=== PATIENT | female | born 1985 | race Caucasian/White ===

== ENCOUNTER 2018-05-09 16:01 | Emergency (ER) | payer OTHER ==
--- NOTE | 2018-05-09 16:51 | ED Physician Documentation ---
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 denies: Focal weakness, Numbness, Headache PD PAST MEDICAL HISTORY - Past Medical History Past Medical History: No Cardiovascular: None Respiratory: None Neuro: None Endocrine/Autoimmune: None GI: None CASH REGISTER SERVICER: None HEENT: None Psych: Anxiety Musculoskeletal: None Derm: None - Past Surgical History Past Surgical History: Yes General: Cholecystectomy, Gastric surgery /CASH REGISTER SERVICER: Tubal ligation HEENT: Tonsil/Adenoidectomy - Allergies Allergies/Adverse Reactions: Allergies Allergy/AdvReac Type Severity Reaction Status Date / Time No Known Drug Allergies Allergy Verified 05/09/18 16:15 - Social History Does the pt smoke?: No Smoking Status: Never smoker Does the pt drink ETOH?: No Does the pt have substance abuse?: No - Immunizations Immunizations are current?: Yes - POLST Patient has POLST: No PD ED PE NORMAL - Vitals Vital signs reviewed: Yes - HEENT HEENT: PERRL, Other (small superfical approx 1 cm lac to top of scalp) - Neck Neck: Supple, no meningeal sign - Cardiac Cardiac: RRR - Neuro Neuro: Alert and oriented X 3, No motor deficit, Normal speech Eye Opening: Spontaneous Motor: Obeys Commands Verbal: Oriented GCS Score: 15 Results - Vitals Vitals: Vital Signs - 24 hr 05/09/18 16:08 Temperature 36.7 C Heart Rate 83 Respiratory 67 H Rate Blood Pressure 124/76 O2 Saturation 99 Oxygen O2 Source Room air PD MEDICAL DECISION MAKING - Sepsis Event Vital Signs: Vital Signs - 24 hr 05/09/18 16:08 Temperature 36.7 C Heart Rate 83 Respiratory 67 H Rate Blood Pressure 124/76 O2 Saturation 99 Oxygen O2 Source Room air Departure - Departure Disposition: 01 Home, Self Care Clinical Impression: Scalp laceration Qualifiers: Encounter type: initial encounter Qualified Code(s): S01.01XA - Laceration without foreign body of scalp, initial encounter Condition: Good Instructions: ED Laceration Scalp Stitch Or Stap, ED Head Injury Closed Comments: Keep wound clean and apply antibiotic ointment twice a day until healed
[2018-05-09 17:12] VITALS: BP 120/78
== END 2018-05-09 17:13 | disposition home or self-care (01) ==
LOC: ED 16:01
DX: S01.01XA Laceration without foreign body of scalp, initial encounter (principal); W22.09XA Striking against other stationary object, initial encounter; Y93.01 Activity, walking, marching and hiking
CPT/HCPCS: 99282; 99283

== ENCOUNTER 2021-01-21 08:00 | Outpatient (CLI) | payer OTHER ==
[2021-01-21 21:14] LABS: CHLAMYDIA TRACHOMATIS DNA NEGATIVE (NEGATIVE); NEISSERIA GONORRHOEAE DNA NEGATIVE (NEGATIVE); TRICHOMONAS VAGINALIS DNA NEGATIVE (NEGATIVE)
== END 2021-01-21 08:01 | disposition home or self-care (01) ==
LOC: LAB.WC 08:00
PROVIDERS: ATTEND Obstetrics & Gynecology
DX: Z11.3 Encounter for screening for infections with a predominantly sexual mode of transmission (principal)
CPT/HCPCS: 87491; 87591; 87661

== ENCOUNTER 2021-03-11 16:50 | Outpatient (CLI) | payer OTHER | END 2021-03-11 16:51 | disposition home or self-care (01) | LOC: COV 16:50 | PROVIDERS: ATTEND Obstetrics & Gynecology | DX: Z01.812 Encounter for preprocedural laboratory examination (principal); N94.6 Dysmenorrhea, unspecified; N92.0 Excessive and frequent menstruation with regular cycle; Z20.822 Contact with and (suspected) exposure to COVID-19 ==

== ENCOUNTER 2021-03-16 07:17 | Day surgery (SDC) | payer OTHER ==
[2021-03-16] MEDS ORDERED: LACTATED RINGERS 1,000 ML IV ONE ×3 (07:35→12:32)
[2021-03-16] MEDS ORDERED: GABAPENTIN 400 MG CAPSULE ONE (07:40)
[2021-03-16] MEDS ORDERED: ACETAMINOPHEN 1,000 MG/100 ML 100 ML IV ONE (07:40)
[2021-03-16] MEDS ORDERED: ceFAZolin 2 GM/50 ML 2 GM/50 ML BAG IV ONE (07:41)
[2021-03-16 07:57] LABS: BASOPHILS # (AUTO) 0.1 10^3/uL (0.0-0.1); EOSINOPHILS # (AUTO) 0.2 10^3/uL (0.0-0.7); EOSINOPHILS % (AUTO) 3.4 %; HGB - HEMOGLOBIN 13.2 g/dL (12.0-16.0); LYMPHOCYTES # (AUTO) 1.9 10^3/uL (1.5-3.5); LYMPHOCYTES % (AUTO) 27.2 %; MEAN CORPUSCULAR HEMOGLOBIN 27.7 pg (27.0-31.0); MEAN CORPUSCULAR HGB CONC 31.4 g/dL (32.0-36.0); MEAN CORPUSCULAR VOLUME 88.2 fL (81.0-99.0); MEAN PLATELET VOLUME 11.2 fL (7.9-10.8); MONOCYTES # (AUTO) 0.5 10^3/uL (0.0-1.0); MONOCYTES % (AUTO) 6.9 %; NEUTROPHILS # (AUTO) 4.2 10^3/uL (1.5-6.6); NEUTROPHILS % (AUTO) 61.2 %; PLT - PLATELET COUNT 368 10^3/uL (130-450); RED BLOOD COUNT 4.76 10^6/uL (4.20-5.40); RED CELL DISTRIBUTION WIDTH 13.2 % (12.0-15.0); WHITE BLOOD COUNT 6.9 x10^3/uL (4.8-10.8)
[2021-03-16 08:00] LABS: HCG UR QUAL NEGATIVE
--- NOTE | 2021-03-16 08:05 | ANESTHESIA ---
Pre-Anesthesia VS, & Labs - Diagnosis dysmenorrhea, menorrhagia - Procedure total laparoscopic hysterectomy Vital Signs: Temp Pulse Resp BP Pulse Ox 37.2 C 78 16 116/68 100 03/16/21 07:48 03/16/21 07:48 03/16/21 07:48 03/16/21 07:48 03/16/21 07:48 Height: 5 ft 7 in Weight (kg): 69 kg Body Mass Index: 23.8 BMI Classification: Healthy weight - NPO >8 hours - Is Patient ?: No - Lab Results Current Lab Results: Laboratory Tests 03/16/21 07:52: WBC 6.9, RBC 4.76, Hgb 13.2, Hct 42.0, MCV 88.2, MCH 27.7, MCHC 31.4 L, RDW 13.2, Plt Count 368, MPV 11.2 H, Neut # (Auto) 4.2, Lymph # (Auto) 1.9, Walker # (Auto) 0.5, Eos # (Auto) 0.2, Baso # (Auto) 0.1, Absolute Nucleated RBC 0.00, Nucleated RBC % 0.0 Fish Bones: 03/16/21 07:52 Home Medications and Allergies Home Medications: Ambulatory Orders Vilazodone HCl [Viibryd] 40 mg PO DAILY 03/11/21 buPROPion HCL [Bupropion HCl] 100 mg PO BID 03/11/21 hydrOXYzine HCL [Hydroxyzine HCl] 25 mg PO DAILY PRN 03/11/21 Vilazodone HCl [Viibryd] 40 mg PO DAILY 03/11/21 buPROPion HCL [Bupropion HCl] 100 mg PO BID 03/11/21 hydrOXYzine HCL [Hydroxyzine HCl] 25 mg PO DAILY PRN 03/11/21 Allergies/Adverse Reactions: Allergies Allergy/AdvReac Type Severity Reaction Status Date / Time No Known Drug Allergies Allergy Verified 05/09/18 16:15 Anes History & Medical History - Anesthetic History Anesthesia Complications: reports: Post-Operative Nausea/Vomiting - Medical History Cardiovascular: reports: None Pulmonary: reports: None Gastrointestinal: reports: GERD Urinary: reports: None Neuro: reports: None Musculoskeletal: reports: None Endocrine/Autoimmune: reports: None Blood Disorders: reports: None Skin: reports: None Smoking Status: Never smoker Psychosocial: reports: Anxiety History of Cancer?: No - Surgical History General: reports: Cholecystectomy Eyes Ears Nose Throat (EENT): reports: Tonsil/Adenoidectomy Gynecologic: reports: section Exam General: Alert Dental: WNL Mallampati classification: I Respiratory: Lungs clear Cardiovascular: Regular rate Plan Anesthesia Type: General Consent for Procedure(s) Verified and Reviewed: Yes Code Status: Attempt Resuscitation ASA classification: 2-Mild systemic disease Is this case an emergency?: No
[2021-03-16] MEDS ORDERED: PHENAZOPYRIDINE 100 MG TABLET PO ONE (08:06)
[2021-03-16] MEDS ORDERED: LIDOCAINE-MPF 2% 5 ML VIAL ONE (08:16)
[2021-03-16] MEDS ORDERED: PROPOFOL 200 MG/20 ML VIAL IVP ONE (08:16)
[2021-03-16] MEDS ORDERED: SCOPOLAMINE PATCH TOP ONE (08:16)
[2021-03-16] MEDS ORDERED: fentaNYL 100 MCG/2 ML VIAL ONE ×2 (08:17→09:08)
[2021-03-16] MEDS ORDERED: MIDAZOLAM 2 MG/2 ML VIAL ONE ×2 (08:17→08:28)
[2021-03-16] MEDS ORDERED: ROCURONIUM 50 MG/5 ML VIAL ONE ×2 (08:17→10:17)
[2021-03-16] MEDS ORDERED: ONDANSETRON 4 MG/2 ML VIAL ONE (08:17)
[2021-03-16] MEDS ORDERED: DEXAMETHASONE 4 MG/ML VIAL ONE (08:17)
[2021-03-16] MEDS ORDERED: BUPIVACAINE 0.5% PF 30 ML VIAL ONE (08:20)
[2021-03-16] MEDS ORDERED: LIDOCAINE 2%-EPI 1:100000 20 ML MDV ONE (08:20)
[2021-03-16] MEDS ORDERED: SEVOFLURANE 250 ML LIQUID INH ONE (08:21)
[2021-03-16] MEDS ORDERED: ePHEDrine 50 MG/ML VIAL IVP PRN (08:24)
[2021-03-16] MEDS ORDERED: fentaNYL 100 MCG/2 ML VIAL IVP PRN (08:24)
[2021-03-16] MEDS ORDERED: ONDANSETRON 4 MG/2 ML VIAL IVP PRN ×2 (08:24→12:00)
[2021-03-16] MEDS ORDERED: HYDROmorphone 0.5 MG/0.5 ML SYRINGE IVP PRN (08:24)
[2021-03-16] MEDS ORDERED: MORPHINE 2 MG/ML CARPUJECT IVP PRN (08:24)
[2021-03-16] MEDS ORDERED: NALOXONE 0.4 MG/ML VIAL IVP PRN (08:24)
[2021-03-16] MEDS ORDERED: ATROPINE ABBOJECT 1 MG/10 ML SYRINGE IVP PRN (08:24)
[2021-03-16] MEDS ORDERED: LACTATED RINGERS 1,000 ML IV SCH (09:00)
[2021-03-16] MEDS ORDERED: LIDOCAINE 2%-EPI 1:100000 20 ML MDV SUBQ ONE ×2 (09:28)
[2021-03-16] MEDS ORDERED: BUPIVACAINE 0.5% PF 30 ML VIAL INFIL ONE ×2 (09:28)
[2021-03-16] MEDS ORDERED: ePHEDrine 50 MG/ML VIAL IVP ONE (11:19)
[2021-03-16] MEDS ORDERED: SUGAMMADEX 200 MG/2 ML VIAL IVP ONE (11:26)
[2021-03-16] MEDS ORDERED: oxyCODONE 5 MG TABLET PO PRN (12:00)
--- NOTE | 2021-03-16 12:05 | OPERATIVE REPORT ---
Operative Report - General Procedure Date: 03/16/21 Planned Procedure: Supracervical hysterectomy cystoscopy Pre-Op Diagnosis: Menorrhagia dysmenorrhea Procedure Performed: Supracervical hysterectomy Cystoscopy Post Op Diagnosis: Menorrhagia dysmenorrhea - Procedure Note Primary Surgeon: Monty Aguirre MD Secondary Surgeon: Krysta Ratliff MD Anesthesia Provider: Wally Noble CRNA Anesthesia Technique: General ET tube Pathology: Uterus without cervix IV Fluids (mL): 1,800 Estimated Blood Loss (mL): 100 Urine Output (mL): 350 - Other Other Information/Narrative: Following general anesthesia via endotracheal tube patient was placed in the dorsolithotomy position. She was then prepped and draped in the usual fashion. A timeout was performed which concerns were addressed those of her previous surgery as well as the plan to do a supracervical hysterectomy. A speculum was placed in the vagina cervix was visualized grasped with a single-tooth tenacu lum. At this point the uterosacral ligaments were injected bilaterally with 2% lidocaine with epinephrine and 0.5% Marcaine. The endocervical canal was then cauterized with electrocautery roughly to 3 cm in depth. Following this the cervix was dilated up to 7 mm and a forestry pilot uterine manipulator was placed in the uterine cavity. The angles pressed up into the fornices bilaterally. Both balloons were inflated. The dry cleaning machine operator helper's gloves were changed and then this subumbilical area was opened with a 11 blade. A 5 mm trocar and placed was placed without difficulty. Following this 2 additional insertions were made both in the left and right lower quadrants. This was done following local anesthesia with Marcaine and lidocaine. Both ports were placed under direct visualization. The uterus was inspected both tubes were surgically absent as a previously been removed. The ovaries appeared free of disease there were some small areas of endometriosis on the left-hand side. The right utero-ovarian ligament was doubly cauterized with the LigaSure and then divided the round ligament was likewise doubly cauterized and divided. The anterior leaf of the broad ligament was dissected open and then cauterized and transected utilizing the LigaSure this was done all the way down to the internal os of cervix as well as coming across the bladder and uterus. Care was taken to remain outside the bladder. The uterine vessels on the right-hand side were doubly cauterized and transected with LigaSure the posterior portion of the peritoneum was opened in the backside of the uterus. At this point Dr. Ratliff did an identical procedure on the left-hand side. The utero-ovarian ligament was doubly cauterized transected as well as the round ligament ligament was cauterized and transected. The anterior leaf of the broad ligament opened and cauterized and transected all the way down to the internal os of the cervix where the previous dissection had occurred. The posterior leaf the broad ligament was cauterized and transected carried down all the way to the ovarian vessels. The these were cauterized and transected with the LigaSure. Care was to make sure there was good hemostasis. The uterine vessels on the right-hand side were cauterized again and then transected with LigaSure. Bladder was pushed off the lower portion of the uterus. The uterus was then amputated from the cervix at the level of the internal os with a harmonic scalpel. This was then brought off the forestry pilot manipulator and then the internal cervical canal was cauterized utilizing the harmonic scalpel. The cervix showed no further bleeding. Number O V-Loc suture was then used to close the apex of the cervix care was taken to avoid any stitches going through the bladder. The cystoscope was then placed there was no evidence of any sutures in the bladder and there is evidence of good urinary flow from both ureteral orifice ease. Operators gloves were changed once again and then a Pfannenstiel incision was made through the old incision down to the fascia the fascia incised transversely and then Saleh scissors were used to extend this laterally the rectus was split along the midline peritoneum entered high. The uterus was located brought out through the incision the apex of the cervix as well as the dissection area is inspected there is a small amount of blood this was irrigated. Surgi-Jacoby was then placed and there is no evidence of any further bleeding. The peritoneum was closed utilizing 2-0 Vicryl the rectus was erin proximated with figure eights the fascia was closed utilizing 0 Vicryl 2-0 Vicryl was used to close the subcutaneous plate space and the incision itself was closed utilizing 4-0 Monocryl the subumbilical as well as left and right lower quadrant incision sites were all closed with 4-0 Monocryl subcuticular. Patient tolerated the procedure well was taken recovery in stable condition sponge and needle counts were correct. Throughout the procedure Dr. Ratliff was intimately involved. Her assistance was instrumental to the completion of the case.
[2021-03-16] MEDS ORDERED: KETOROLAC 15 MG/ML VIAL ONE (12:18)
--- NOTE | 2021-03-16 12:54 | ANESTHESIA POST OP EVALUATION ---
Anesthesia Post Eval - Post Anesthesia Eval Vitals: Last Vital Signs Temp 36.7 C 03/16/21 12:26 Pulse 96 03/16/21 12:36 Resp 13 03/16/21 12:36 BP 111/57 L 03/16/21 12:36 Pulse Ox 100 03/16/21 12:36 CV Function Including HR & BP: Stable Pain Control: Satisfactory Nausea & Vomiting: Negative Mental Status: Baseline Respiratory Status: Airway Patent Hydration Status: Satisfactory Anesthesia Complications: None
[2021-03-16] MEDS: KETOROLAC 15 MG/ML VIAL IVP PRN (18:37)
[2021-03-16] MEDS: SIMETHICONE CHEW 80 MG TABLET PO PRN (19:58)
[2021-03-17] MEDS: KETOROLAC 15 MG/ML VIAL IVP PRN ×2 (00:36→06:58)
[2021-03-17 08:16] VITALS: BP 105/58
[2021-03-17] MEDS: SIMETHICONE CHEW 80 MG TABLET PO PRN (08:35)
--- NOTE | 2021-03-17 09:20 | PROVIDER PROGRESS NOTE ---
Subjective - General Procedure Date: 03/16/21 Post Op Days: 1 Procedure Performed: Supracervical hysterectomy with cystoscopy - Review of Systems Wound/Incisions: positive: Dressing dry and intact General: positive: No symptoms, Fever Gastrointestinal: positive: No symptoms, Nausea, Vomiting Genitourinary: positive: No symptoms Objective - Patient Data Reviewed Vital Signs: Yes Vital Signs: Vital Signs x48h Temp Pulse Resp BP Pulse Ox 03/17/21 07:50 36.5 C 72 17 105/58 L 99 03/17/21 04:56 69 18 100/50 L 96 Weight: Weight 03/15/21 03/16/21 03/17/21 23:59 23:59 23:59 Weight (kg) 69 kg Intake & Output: Intake and Output Totals x24h 03/15/21 03/16/21 03/17/21 23:59 23:59 23:59 Intake Total 700 Output Total 650 Balance 50 - Lab Results Lab Results: 03/16/21 07:52 - Current Medications Current Medications: Current Medications Generic Name Dose Route Start Last Admin Trade Name Freq PRN Reason Stop Dose Admin Ketorolac Tromethamine 15 mg 03/16/21 12:02 03/17/21 06:58 Ketorolac 15 Mg/Ml Vial IVP 03/21/21 12:01 15 mg Q6HR PRN Administration PAIN Simethicone 80 mg 03/16/21 19:40 03/17/21 08:35 Simethicone Chew 80 Mg Tablet PO 80 mg Q4HR PRN Administration Gas - Physical Exam Wound/Incisions: positive: Healing well, Dressing dry and intact, No drainage General Appearance: positive: No acute distress (Pain 2.5/10), Alert Respiratory: positive: Chest non-tender, No respiratory distress, Breath sounds nml Cardiovascular: positive: Regular rate & rhythm, No murmur, No gallop Abdomen: positive: Non-tender, Nml bowel sounds, No distention Back: negative: CVA tenderness (R), CVA tenderness (L) Extremities: positive: Calf tenderness, Demond's sign/cords Neurologic/Psychiatric: positive: Oriented x3 Impression/Plan - Problem List Problem List: Patient is postop day #1 she is doing excellent at this time. Her pain is mini mal she feels better after surgery than before. She is voiding easily. At this point she requests to go home. Patient cautioned should she develop chills fevers temperatures greater than 100.4 foul-smelling vaginal discharge or a lot of pelvic pain that she should report this otherwise will follow up in 1 week. We will give patient oxycodone. She is unable to do NSAIDs secondary to her Mitzi-en-Y procedure.Have counseled patient that she needs to be on a stool softener and that all narcotics can constipate you.
--- NOTE | 2021-03-17 09:25 | Discharge Plan ---
Discharge Plan Problem Reviewed?: Yes Disposition: Home, Self Care Condition: Good Diet: Regular Activity Restrictions: No Restrictions Shower Restrictions: No Driving Restrictions: No Weight Bearing: Full Weight Instruction Topics: Hysterectomy Laparoscopic Home, Hysterectomy Laparoscopic Dc No Smoking: If you smoke, Please STOP! Call for help.
== END 2021-03-17 10:22 | disposition home or self-care (01) ==
LOC: SDS 07:17 → FBP 12:41 → SDS 03-17 10:22
PROVIDERS: ATTEND Obstetrics & Gynecology
PROC: 0UT94ZL Resection of Uterus, Supracervical, Percutaneous Endoscopic Approach (ICD-10-PCS; principal; 2021-03-16 08:30)
DX: N94.6 Dysmenorrhea, unspecified (principal); N92.0 Excessive and frequent menstruation with regular cycle
CPT/HCPCS: 36415; 58541; 81025; 85025; A9270; J0131; J0690; J3490; J7120

== ENCOUNTER 2021-04-16 18:35 | Emergency (ER) | payer OTHER ==
--- NOTE | 2021-04-16 19:03 | ED Physician Documentation ---
PD HPI ABD PAIN - Stated complaint Stated Complaint: FALL,ABD PX - Chief complaint Chief Complaint: Abd Pain - History obtained from History obtained from: Patient - Additional information Additional information: 35-year-old woman had a gastric sleeve done in 2016, subsequently developed terrible reflux and was on omeprazole but eventually, about a year ago had a laparoscopic Mitzi-en-Y which helps. She is also had her gallbladder out, recent hysterectomy, and tubal ligation prior to hysterectomy. Yesterday started developed right flank pain radiating to the right lateral abdomen which became m uch worse today with a near syncopal episode and she fell because of the pain although did not get hurt. Pain is somewhat better now and declines pain medication on initial evaluation. No fevers. She was nauseous "because of the pain." Review of Systems Ten Systems: 10 systems reviewed and negative Constitutional: reports: Sweats. 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 COMBINATION: None : None HEENT: None Psych: Depression, Anxiety, Panic attacks, Claustrophobia Musculoskeletal: None Derm: None - Past Surgical History Past Surgical History: Yes General: Cholecystectomy /MANAGER COMBINATION: section HEENT: Tonsil/Adenoidectomy - Present Medications Home Medications: Ambulatory Orders Medication Instructions Recorded Confirmed Vilazodone HCl [Viibryd] 40 mg PO DAILY 03/11/21 03/11/21 buPROPion HCL [Bupropion HCl] 100 mg PO BID 03/11/21 03/11/21 hydrOXYzine HCL [Hydroxyzine HCl] 25 mg PO DAILY PRN 03/11/21 03/11/21 - Allergies Allergies/Adverse Reactions: Allergies Allergy/AdvReac Type Severity Reaction Status Date / Time No Known Drug Allergies Allergy Verified 04/16/21 18:47 - Social History Does the pt smoke?: No Smoking Status: Never smoker Does the pt drink ETOH?: No Does the pt have substance abuse?: No - Immunizations Immunizations are current?: Yes - POLST Patient has POLST: No PD ED PE NORMAL - Vitals Vital signs reviewed: Yes - General General: Alert and oriented X 3, No acute distress - HEENT HEENT: PERRL, EOMI - Neck Neck: Supple, no meningeal sign, No bony TTP - Cardiac Cardiac: RRR, No murmur - Respiratory Respiratory: No respiratory distress, Clear bilaterally - Abdomen Abdomen: Normal bowel sounds, Soft, Other (Tender to the right upper quadrant with negative Carpio sign, no tenderness over the right flank or the rest of the abdomen.) - Back Back: No CVA TTP, No spinal TTP - Derm Derm: Normal color, Warm and dry - Extremities Extremities: No edema, No calf tenderness / cord - Neuro Neuro: Alert and oriented X 3, Normal speech Results - Vitals Vitals: Vital Signs - 24 hr 04/16/21 04/16/21 18:40 21:05 Temperature 36.6 C 36.1 C L Heart Rate 78 66 Respiratory 15 16 Rate Blood Pressure 128/75 113/56 L O2 Saturation 99 100 Oxygen O2 Source Room air - Labs Labs: Laboratory Tests 04/16/21 04/16/21 04/16/21 19:00 19:00 20:38 WBC 11.4 H RBC 4.07 L Hgb 11.5 L Hct 35.9 L MCV 88.2 MCH 28.3 MCHC 32.0 RDW 13.0 Plt Count 297 MPV 11.1 H Neut # (Auto) 6.9 H Lymph # (Auto) 2.8 [place] # (Auto) 0.8 Eos # (Auto) 0.7 Baso # (Auto) 0.1 Absolute Nucleated RBC 0.00 Nucleated RBC % 0.0 Sodium 138 Potassium 3.8 Chloride 101 Carbon Dioxide 29 Anion Gap 8.0 BUN 10 Creatinine 0.8 Estimated GFR (MDRD) 83 L Glucose 99 Calcium 8.8 Total Bilirubin 0.7 AST 17 ALT 26 Alkaline Phosphatase 63 Total Protein 7.1 Albumin 4.1 Globulin 3.0 Albumin/Globulin Ratio 1.4 Lipase 30 Urine Color YELLOW Urine Clarity CLEAR Urine pH 7.5 Ur Specific [place] 1.015 Urine Protein NEGATIVE Urine Glucose (UA) NEGATIVE Urine Ketones NEGATIVE Urine Occult Blood NEGATIVE Urine Nitrite NEGATIVE Urine Bilirubin NEGATIVE Urine Urobilinogen 0.2 (NORMAL) Ur Leukocyte Esterase NEGATIVE Ur Microscopic Review NOT INDICATED Urine Culture Comments NOT INDICATED - Rads (name of study) CT A/P Radiology: EMP read contemporaneously PD MEDICAL DECISION MAKING - ED course ED course: 35-year-old woman presents with severe sudden onset right flank pain with autonomic symptoms. Much better here with relatively benign exam. Differential diagnosis includes retained gallstone, appendicitis or other intra-abdominal emergency, renal colic. CT report was reviewed. The changes the radiologist notes may be from recent hysterectomy. I suspect she may have large volume right colonic stool colic causing her pain. She declined pain medications here and watchful waiting was advised. Departure - Departure Disposition: 01 Home, Self Care Clinical Impression: Abdominal pain Qualifiers: Abdominal location: right upper quadrant Qualified Code(s): R10.11 - Right upper quadrant pain Condition: Good Record reviewed to determine appropriate education?: Yes Instructions: ED Abdominal Pain Unkn Cause Comments: As discussed, the radiologist felt that she might have a mild enteritis or sequelae of recently ruptured ovarian cyst, that said the read from the radiologist and those findings may be related to your recent hysterectomy which I find more likely. Drink plenty of fluids and return if you worsen.
[2021-04-16] MEDS ORDERED: IOPAMIDOL-300 100 ML VIAL ONE (19:09)
[2021-04-16] MEDS ORDERED: IOVERSOL 320 50 ML VIAL ONE (19:10)
[2021-04-16 19:18] LABS: BASOPHILS # (AUTO) 0.1 10^3/uL (0.0-0.1); BASOPHILS % (AUTO) 0.9 %; EOSINOPHILS # (AUTO) 0.7 10^3/uL (0.0-0.7); EOSINOPHILS % (AUTO) 6.2 %; HCT - HEMATOCRIT 35.9 % (37.0-47.0); HGB - HEMOGLOBIN 11.5 g/dL (12.0-16.0); LYMPHOCYTES # (AUTO) 2.8 10^3/uL (1.5-3.5); LYMPHOCYTES % (AUTO) 24.6 %; MEAN CORPUSCULAR HEMOGLOBIN 28.3 pg (27.0-31.0); MEAN CORPUSCULAR VOLUME 88.2 fL (81.0-99.0); MEAN PLATELET VOLUME 11.1 fL (7.9-10.8); MONOCYTES # (AUTO) 0.8 10^3/uL (0.0-1.0); MONOCYTES % (AUTO) 7.4 %; NEUTROPHILS # (AUTO) 6.9 10^3/uL (1.5-6.6); NEUTROPHILS % (AUTO) 60.7 %; PLT - PLATELET COUNT 297 10^3/uL (130-450); RED BLOOD COUNT 4.07 10^6/uL (4.20-5.40); WHITE BLOOD COUNT 11.4 x10^3/uL (4.8-10.8)
[2021-04-16 19:31] LABS: ALBUMIN 4.1 g/dL (3.2-5.5); ALBUMIN/GLOBULIN RATIO 1.4 (1.0-2.2); BILIRUBIN,TOTAL 0.7 mg/dL (0.2-1.0); CALCIUM 8.8 mg/dL (8.5-10.3); CREATININE 0.8 mg/dL (0.4-1.0); POTASSIUM 3.8 mmol/L (3.5-5.0); TOTAL PROTEIN 7.1 g/dL (6.7-8.2)
[2021-04-16 20:57] LABS: BILIRUBIN,URINE NEGATIVE (NEGATIVE); GLUCOSE, URINE (UA) NEGATIVE (NEGATIVE); KETONES,URINE (UA) NEGATIVE (NEGATIVE); LEUKOCYTE ESTERASE, URINE NEGATIVE (NEGATIVE); NITRITE,URINE NEGATIVE (NEGATIVE); OCCULT BLOOD,URINE NEGATIVE (NEGATIVE); PH,URINE 7.5 PH (5.0-7.5); PROTEIN,URINE NEGATIVE (NEGATIVE); UROBILINOGEN,URINE 0.2 (NORMAL) E.U./dL (NORMAL)
[2021-04-16 20:58] LABS: CLARITY,URINE CLEAR (CLEAR)
[2021-04-16] MEDS ORDERED: IOVERSOL 320 50 ML VIAL PO ONE (20:58)
[2021-04-16] MEDS ORDERED: IOPAMIDOL-300 100 ML VIAL IVP ONE (20:59)
[2021-04-16 21:05] VITALS: BP 113/56
--- NOTE | 2021-04-16 21:38 | CT Report ---
PROCEDURE: Abdomen/Pelvis W INDICATIONS: IV and PO, RUQ pain, hx nedra en y et al CONTRAST: IV CONTRAST: Isovue 300 ml: 100 PO CONTRAST: Optiray 320 ml50 TECHNIQUE: After the administration of IV and oral contrast, 5 mm thick sections acquired from the diaphragms to the symphysis. 5 mm thick coronal and sagittal reformats were acquired. For radiation dose reducti on, the following was used: automated exposure control, adjustment of mA and/or kV according to annie ent size. COMPARISON: None. FINDINGS: Image quality: Excellent. ABDOMEN: Lung bases: Lung bases are clear. Heart size is normal. Solid organs: Liver and spleen are normal in size and enhancement. Gallbladder is surgically absent . Biliary system is non dilated. Pancreas enhances normally. No adrenal nodules. Kidneys demonstr ate normal size and enhancement, without hydronephrosis. Peritoneum and bowel: Surgical changes of gastric bypass. Small bowel loops of the pelvis demonstrate mild congestion of the mesentery, slight mucosal enhancement, and trace surrounding fluid. No free f luid or air. Normal appendix seen. Nodes and vessels: No retroperitoneal or mesenteric adenopathy by size criteria. Aorta and inferior vena cava are normal in size. Miscellaneous: No ventral hernias. PELVIS: Genitourinary: Bladder wall thickness is normal. Indistinct uterine contour. Normal ovaries. Miscellaneous: No inguinal hernias or adenopathy. Subacute, healing scar. Bones: No suspicious bony lesions. No vertebral body compression fractures. IMPRESSION: 1. Mild inflammatory changes involving the low pelvic small bowel mesentery may indicate enteritis or be reactive to recently ruptured ovarian cyst. 2. Normal appendix visible. 3. Postcholecystectomy and gastric bypass. Reviewed by: Nika Chris MD on 04/16/2021 9:36 PM PDT Approved by: Niak Chris MD on 04/16/2021 9:36 PM PDT Station ID: [id number]
== END 2021-04-16 22:01 | disposition home or self-care (01) ==
LOC: ED 18:35
DX: R10.11 Right upper quadrant pain (principal)
CPT/HCPCS: 36415; 74177; 80053; 81003; 83690; 85025; 99283; 99284; Q9967; 81001; 87086

== ENCOUNTER 2022-01-11 14:12 | Emergency (ER) | payer OTHER ==
--- NOTE | 2022-01-11 15:31 | ED Physician Documentation ---
History of Present Illness - Stated complaint Stated Complaint: CHEST PX - Chief complaint Chief Complaint: Cardiac - Additonal information Additional information: 36-year-old female presents emergency department for evaluation of chest pain. She has had intermittent brief, sharp chest pains for about the last week. Denies that there are any inciting factors. Denies shortness of air. She states that they usually last from 10 to 30 seconds and describes it as a burrowing sensation. She is denying any history of similar. She has no history of hypertension, diabetes or tobacco use. She did have a hysterectomy but retains her ovaries. She is not on any hormones. No recent travel, unilateral leg swelling, surgeries, history of blood clots or cancer. She is concerned that she could be having cardiac issues as her paternal uncle of a heart attack under the age of 40. Review of Systems Constitutional: denies: Fever, Chills Eyes: reports: Reviewed and negative Nose: reports: Reviewed and negative Throat: reports: Reviewed and negative Cardiac: reports: Chest pain / pressure. 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 FOREMAN: section HEENT: Tonsil/Adenoidectomy - Present Medications Home Medications: Ambulatory Orders Medication Instructions Recorded Confirmed Vilazodone HCl [Viibryd] 40 mg PO DAILY 03/11/21 01/11/22 Hyoscyamine [Levsin] 0.125 mg SL QID PRN 01/11/22 01/11/22 Venlafaxine [Effexor] 37.5 mg PO DAILY 01/11/22 01/11/22 - Allergies Allergies/Adverse Reactions: Allergies Allergy/AdvReac Type Severity Reaction Status Date / Time No Known Drug Allergies Allergy Verified 01/11/22 14:24 - Social History Does the pt smoke?: No Smoking Status: Never smoker Does the pt drink ETOH?: No Does the pt have substance abuse?: No - Immunizations Immunizations are current?: Yes - POLST Patient has POLST: No PD ED PE NORMAL - General General: Alert and oriented X 3, No acute distress - HEENT HEENT: PERRL - Neck Neck: Supple, no meningeal sign, No adenopathy - Cardiac Cardiac: RRR, No murmur, No gallop, Strong equal pulses - Respiratory Respiratory: No respiratory distress, Clear bilaterally - Abdomen Abdomen: Normal bowel sounds, Soft, Non tender - Back Back: No CVA TTP, No spinal TTP - Derm Derm: Normal color, Warm and dry, No rash - Extremities Extremities: No deformity, No tenderness to palpate, Normal ROM s pain - Neuro Neuro: Alert and oriented X 3, svp group director 2-12 intact, No motor deficit Eye Opening: Spontaneous Motor: Obeys Commands Verbal: Oriented GCS Score: 15 - Psych Psych: Normal mood Results - Vitals Vitals: Vital Signs - 24 hr 01/11/22 01/11/22 14:24 15:45 Temperature 36.8 C Heart Rate 82 79 Respiratory 16 18 Rate Blood Pressure 104/60 114/71 O2 Saturation 99 96 Oxygen O2 Source Room air - EKG (time done) 1437 Rate: Rate (enter#) (75) Rhythm: NSR [place]: Normal Intervals: Normal DC QRS: Normal, Low voltage Ischemia: Normal ST segments Compare to prior EKG: Old EKG unavailable Computer interpretation: Agree with computer - Labs Labs: Laboratory Tests 01/11/22 01/11/22 01/11/22 15:30 15:30 15:30 WBC 6.2 RBC 4.63 Hgb 12.2 Hct 39.1 MCV 84.4 MCH 26.3 L MCHC 31.2 L RDW 13.4 Plt Count 351 MPV 10.5 Neut # (Auto) 3.7 Lymph # (Auto) 1.3 L [place] # (Auto) 0.8 Eos # (Auto) 0.3 Baso # (Auto) 0.1 Absolute Nucleated RBC 0.00 Nucleated RBC % 0.0 Sodium 138 Potassium 3.8 Chloride 101 Carbon Dioxide 27 Anion Gap 10.0 BUN 6 Creatinine 0.6 Estimated GFR (MDRD) 114 Glucose 98 Calcium 9.1 Troponin I High Sens < 2.3 L - Rads (name of study) cxr Radiology: Final report received (No acute cardiopulmonary process) PD MEDICAL DECISION MAKING - ED course Complexity details: reviewed results, re-evaluated patient, considered differential, d/w patient ED course: .Well-appearing 36-year-old female presents emergency department for evaluation of multiple episodes of brief sharp right-sided chest pain that began about a week ago. No inducing factors. Does not seem exertional or anginal. Screening EKG was nonischemic. Troponin negative. Chest x-ray without acute focal findings. She is PERC negative. I was unable to reproduce the pain on exam however my suspicion for a serious pathology is rather low. She is encouraged to continue close follow-up with primary care provider. Emergent return precautions otherwise discussed Departure - Departure Disposition: Home, Self Care Clinical Impression: Chest pain Qualifiers: Chest pain type: unspecified Qualified Code(s): R07.9 - Chest pain, unspecified Condition: Stable Record reviewed to determine appropriate education?: Yes Instructions: ED Chest Pain NonCardiac Comments: Jonna hutchinson are seen today in the emergency department for chest pain that has been brief, sharp and intermittent for the last week. Chest x-ray is normal. There is no findings of pneumonia, pleural effusion, rib fractures or an enlarged heart. Your EKG is normal for age. Your screening labs, blood count chemistry as well is a troponin which is a marker for heart attacks are all normal. The cause for your chest pain is not clear. As we discussed at the bedside I can say with near certainty that this is not due to a pulmonary embolus or blood clot in your lungs. I do encourage you to discuss this ED visit with your primary doctor. If your symptoms worsen, you develop fevers, or short of air, have a racing heart or any fainting episodes you should return to the ER for a second evaluation
[2022-01-11 15:37] LABS: BASOPHILS # (AUTO) 0.1 10^3/uL (0.0-0.1); EOSINOPHILS # (AUTO) 0.3 10^3/uL (0.0-0.7); EOSINOPHILS % (AUTO) 5.2 %; HCT - HEMATOCRIT 39.1 % (37.0-47.0); HGB - HEMOGLOBIN 12.2 g/dL (12.0-16.0); LYMPHOCYTES # (AUTO) 1.3 10^3/uL (1.5-3.5); LYMPHOCYTES % (AUTO) 20.8 %; MEAN CORPUSCULAR HEMOGLOBIN 26.3 pg (27.0-31.0); MEAN CORPUSCULAR HGB CONC 31.2 g/dL (32.0-36.0); MEAN CORPUSCULAR VOLUME 84.4 fL (81.0-99.0); MEAN PLATELET VOLUME 10.5 fL (7.9-10.8); MONOCYTES # (AUTO) 0.8 10^3/uL (0.0-1.0); MONOCYTES % (AUTO) 13.3 %; NEUTROPHILS # (AUTO) 3.7 10^3/uL (1.5-6.6); NEUTROPHILS % (AUTO) 59.5 %; PLT - PLATELET COUNT 351 10^3/uL (130-450); RED BLOOD COUNT 4.63 10^6/uL (4.20-5.40); RED CELL DISTRIBUTION WIDTH 13.4 % (12.0-15.0); WHITE BLOOD COUNT 6.2 x10^3/uL (4.8-10.8)
--- NOTE | 2022-01-11 15:39 | XRAY Report ---
PROCEDURE: Chest 1 View X-Ray INDICATIONS: chest pain TECHNIQUE: One view of the chest was acquired. COMPARISON: None. FINDINGS: Surgical changes and devices: None. Lungs and pleura: No pleural effusions or pneumothorax. Lungs are clear. Mediastinum: Mediastinal contours appear normal. Heart size is normal. Bones and chest wall: No suspicious bony lesions. Overlying soft tissues appear unremarkable. IMPRESSION: Chest without acute cardiopulmonary abnormalities. No focal consolidations. Reviewed by: Yosi Tobias MD on 01/11/2022 3:38 PM PDT Approved by: Yosi Tobias MD on 01/11/2022 3:38 PM PDT Station ID: [id number]
[2022-01-11 15:43] LABS: CALCIUM 9.1 mg/dL (8.5-10.3); CREATININE 0.6 mg/dL (0.4-1.0); POTASSIUM 3.8 mmol/L (3.5-5.0)
[2022-01-11 16:24] VITALS: BP 111/64
== END 2022-01-11 16:24 | disposition home or self-care (01) ==
LOC: ED 14:12
DX: R07.9 Chest pain, unspecified (principal)
CPT/HCPCS: 36415; 80048; 84484; 85025; 93005; 99284

== ENCOUNTER 2022-01-13 10:39 | Emergency (ER) | payer OTHER ==
[2022-01-13 12:27] LABS: BASOPHILS # (AUTO) 0.1 10^3/uL (0.0-0.1); BASOPHILS % (AUTO) 0.8 %; EOSINOPHILS # (AUTO) 0.2 10^3/uL (0.0-0.7); EOSINOPHILS % (AUTO) 2.2 %; HCT - HEMATOCRIT 41.4 % (37.0-47.0); HGB - HEMOGLOBIN 13.2 g/dL (12.0-16.0); LYMPHOCYTES # (AUTO) 1.8 10^3/uL (1.5-3.5); LYMPHOCYTES % (AUTO) 24.8 %; MEAN CORPUSCULAR HEMOGLOBIN 26.7 pg (27.0-31.0); MEAN CORPUSCULAR HGB CONC 31.9 g/dL (32.0-36.0); MEAN CORPUSCULAR VOLUME 83.8 fL (81.0-99.0); MEAN PLATELET VOLUME 10.4 fL (7.9-10.8); MONOCYTES # (AUTO) 0.6 10^3/uL (0.0-1.0); MONOCYTES % (AUTO) 8.5 %; NEUTROPHILS # (AUTO) 4.6 10^3/uL (1.5-6.6); NEUTROPHILS % (AUTO) 63.4 %; PLT - PLATELET COUNT 400 10^3/uL (130-450); RED BLOOD COUNT 4.94 10^6/uL (4.20-5.40); RED CELL DISTRIBUTION WIDTH 13.3 % (12.0-15.0); WHITE BLOOD COUNT 7.2 x10^3/uL (4.8-10.8)
[2022-01-13 12:42] LABS: ALBUMIN 4.6 g/dL (3.2-5.5); ALBUMIN/GLOBULIN RATIO 1.2 (1.0-2.2); BILIRUBIN,TOTAL 0.6 mg/dL (0.2-1.0); CALCIUM 9.4 mg/dL (8.5-10.3); CREATININE 0.7 mg/dL (0.4-1.0); POTASSIUM 3.7 mmol/L (3.5-5.0); TOTAL PROTEIN 8.5 g/dL (6.7-8.2)
--- NOTE | 2022-01-13 15:34 | ED Physician Documentation ---
History of Present Illness - Stated complaint Stated Complaint: ANXIETY/CHEST PAIN - Chief complaint Chief Complaint: Abd Pain - History obtained from History obtained from: Patient - History of Present Illness Timing: Today Pain level max: 3 Pain level now: 0 - Additonal information Additional information: Patient is a 36-year-old female who is been diagnosed with viral diarrhea who presents to the emergency department stating that she has felt like she has been dehydrated and her doctor wanted her to come here to receive "IV fluids". She has diarrhea approximately every other day. Occasional stomachaches. No recent antibiotics. No fevers. No chills. No vomiting. No nausea. No blood in the stool. The stool is described as loose and watery when she has diarrhea. She states that she was here for chest pain a few days ago. The chest pain has since resolved. Review of Systems Constitutional: denies: Fever, Chills Throat: denies: Sore throat Cardiac: denies: Chest pain / pressure, Palpitations Respiratory: denies: Dyspnea, Cough GI: reports: Diarrhea. 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: section HEENT: Tonsil/Adenoidectomy - Present Medications Home Medications: Ambulatory Orders Medication Instructions Recorded Confirmed Vilazodone HCl [Viibryd] 40 mg PO DAILY 03/11/21 01/11/22 Hyoscyamine [Levsin] 0.125 mg SL QID PRN 01/11/22 01/11/22 Venlafaxine [Effexor] 37.5 mg PO DAILY 01/11/22 01/11/22 Diphenoxylate/Atropine [Lomotil] 1 tab PO QID PRN #20 tablet 01/13/22 - Allergies Allergies/Adverse Reactions: Allergies Allergy/AdvReac Type Severity Reaction Status Date / Time No Known Drug Allergies Allergy Verified 01/13/22 11:15 - Social History Does the pt smoke?: No Smoking Status: Never smoker Does the pt drink ETOH?: No Does the pt have substance abuse?: No - Immunizations Immunizations are current?: Yes - POLST Patient has POLST: No PD ED PE NORMAL - Vitals Vital signs reviewed: Yes - General General: Alert and oriented X 3, No acute distress - HEENT HEENT: Moist mucous membranes - Neck Neck: Supple, no meningeal sign - Cardiac Cardiac: RRR - Respiratory Respiratory: No respiratory distress, Clear bilaterally - Abdomen Abdomen: Soft, Non tender, Non distended - Derm Derm: Warm and dry, No rash - Extremities Extremities: No edema - Neuro Neuro: Alert and oriented X 3 Results - Vitals Vitals: Vital Signs - 24 hr 01/13/22 01/13/22 11:10 18:31 Temperature 36.4 C L Heart Rate 88 70 Respiratory 16 Rate Blood Pressure 115/69 121/69 O2 Saturation 99 100 Oxygen O2 Source Room air - Labs Labs: Laboratory Tests 01/13/22 01/13/22 12:23 12:23 WBC 7.2 RBC 4.94 Hgb 13.2 Hct 41.4 MCV 83.8 MCH 26.7 L MCHC 31.9 L RDW 13.3 Plt Count 400 MPV 10.4 Neut # (Auto) 4.6 Lymph # (Auto) 1.8 [place] # (Auto) 0.6 Eos # (Auto) 0.2 Baso # (Auto) 0.1 Absolute Nucleated RBC 0.00 Nucleated RBC % 0.0 Sodium 138 Potassium 3.7 Chloride 100 L Carbon Dioxide 26 Anion Gap 12.0 BUN 7 Creatinine 0.7 Estimated GFR (MDRD) 96 Glucose 83 Calcium 9.4 Total Bilirubin 0.6 AST 21 ALT 19 Alkaline Phosphatase 63 Total Protein 8.5 H Albumin 4.6 Globulin 3.9 Albumin/Globulin Ratio 1.2 Lipase 32 PD MEDICAL DECISION MAKING - ED course Complexity details: reviewed old records, reviewed results, re-evaluated patient, considered differential, d/w patient ED course: No significant lab abnormalities. Patient was given IV fluids. Feels better. Will place on antidiarrheal medications for home. Appears to be a viral illness. No evidence of C. difficile. Patient is very well-appearing, nontoxic. Afebrile. Patient counseled regarding signs and symptoms for which I believe and urgent re-evaluation would be necessary. Patient with good understanding of and agreement to plan and is comfortable going home at this time This document was made in part using voice recognition software. While efforts are made to proofread this document, sound alike and grammatical errors may occur. Departure - Departure Disposition: 01 Home, Self Care Clinical Impression: Diarrhea Qualifiers: Diarrhea type: unspecified type Qualified Code(s): R19.7 - Diarrhea, unspecified Condition: Good Instructions: ED Diarrhea Viral Follow-Up: Your,doctor in 1 week [Other] Prescriptions: Diphenoxylate/Atropine [Lomotil] 1 tab PO QID PRN #20 tablet PRN Reason: Diarrhea Comments: We will try you on Lomotil for your diarrhea. Drink plenty of fluids. Follow- up with your doctor for further care. Your prescriptions were sent to [facility] in [place]. Discharge Date/Time: 01/13/22 18:31
[2022-01-13] MEDS: SODIUM CHLORIDE 0.9% 1,000 ML IV STA (16:33)
[2022-01-13 18:32] VITALS: BP 121/69
== END 2022-01-13 18:31 | disposition home or self-care (01) ==
LOC: ED 10:39
DX: R19.7 Diarrhea, unspecified (principal)
CPT/HCPCS: 36415; 80053; 83690; 85025; 96360; 96361; 99282

== ENCOUNTER 2022-05-28 22:25 | Emergency (ER) | payer OTHER ==
[2022-05-28 22:32] VITALS: BP 111/62
--- NOTE | 2022-05-29 00:11 | ED Physician Documentation ---
PD HPI HEENT - Stated complaint Stated Complaint: EAR PX - Chief complaint Chief Complaint: Heent - History obtained from History obtained from: Patient - Additional information Additional information: Patient is a 36-year-old female presenting for evaluation Of right earache that has been present for 2 to 3 days and worse this evening. She recently has had URI symptoms and felt nasal congestion, sinus tenderness. She denies fever. She has tried Sudafed with some improvement. She denies abnormal drainage from the ear or hearing loss.She is also used Tylenol with some improvement. 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 HEENT: None Psych: Depression, Anxiety, Panic attacks, Claustrophobia Musculoskeletal: None Derm: None - Past Surgical History Past Surgical History: Yes General: 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: No Does the pt have substance abuse?: No - Immunizations Immunizations are current?: Yes - POLST Patient has POLST: No PD ED PE NORMAL - General General: Alert and oriented X 3, No acute distress, Well developed/nourished - HEENT HEENT: Atraumatic, PERRL, EOMI, Ears normal (Left TM is intact and normal in appearance, right TM is intact with Effusion, no erythema, no bulging), Moist mucous membranes, Pharynx benign, Other (No sinus tenderness to palpation; But reports feeling congested over right maxillary sinus) - Neck Neck: Supple, no meningeal sign - Respiratory Respiratory: No respiratory distress - Derm Derm: Warm and dry - Neuro Neuro: Normal speech Results - Vitals Vitals: Vital Signs - 24 hr 05/28/22 22:29 Temperature 36.8 C Heart Rate 78 Respiratory 18 Rate Blood Pressure 111/62 O2 Saturation 100 Oxygen O2 Source Room air PD MEDICAL DECISION MAKING - ED course ED course: Patient with right ear pain for several days. On exam has effusion but no erythema or bulging. Additionally has reports of sinus congestion for greater than a week. Discussed possible etiologies of symptoms. Discussed options for antibiotics versus [id number]. Patient is comfortable with continuing with trial of Sudafed and Tylenol for her symptoms For several more days. However as she has had sinus symptoms for greater than a week I did also offer antibiotics. She will consider antibiotics if her symptoms do not improve in the next few days and I have sent a prescription for Augmentin to her pharmacy of choice. Departure - Departure Disposition: 01 Home, Self Care Clinical Impression: Otalgia, right ear Condition: Stable Instructions: ED Otitis Media Serous Adult Prescriptions: Amox/Clav 875/125 [Augmentin] 1 each PO Q12H #14 tablet Comments: Jonna you were evaluated for right ear pain. There is some fluid behind the right eardrum. However there are not other signs definitive for infection such as redness or bulging of the eardrum. The eardrum is intact and I do not see signs of any foreign body or infection of the ear canal.The pain could be relate d to pressure building up behind the eardrum. You may want to try decongestant such as Sudafed.We did discuss the use of an antibiotic if your symptoms are not improving over the course of the next 2 days. [facility] [place]. If you have any worsening symptoms or any new concerns please feel free to return to the emergency department. Discharge Date/Time: 05/29/22 00:20
== END 2022-05-29 00:20 | disposition home or self-care (01) ==
LOC: ED 22:25
DX: H92.01 Otalgia, right ear (principal); R09.81 Nasal congestion
CPT/HCPCS: 99282

== ENCOUNTER 2022-08-24 16:15 | Outpatient (CLI) | payer OTHER ==
--- NOTE | 2022-08-25 16:49 | MRI Report ---
PROCEDURE: CERVICAL SPINE WO INDICATIONS: CERVICAL RADICULOPATHY TECHNIQUE: Noncontrast sagittal T1 spin echo and T2 fast spin echo, sagittal STIR, foraminal oblique sagittal T2 fast spin echo, and axial gradient echo or T2 fast spin echo through the cervical spine. COMPARISON: None. FINDINGS: Image quality: Excellent. Alignment and Curvature: There is loss of normal cervical lordosis. Mild focal kyphosis at C4-C6. Bone Marrow: Marrow demonstrates normal overall signal. Spinal Cord: Visualized spinal cord has normal size and signal. No cerebellar tonsillar herniation. Paraspinous Soft Tissues: No paravertebral masses. Prevertebral soft tissues are normal in thicknes s. C2-C3: Normal in appearance. C3-C4: Normal in appearance. C4-C5: Mild disc desiccation and diffuse disc bulge with small superimposed right far lateral protru armando. Mild facet and uncovertebral hypertrophy bilaterally. Mild canal stenosis. Mild right foraminal stenosis. No left foraminal stenosis. C5-C6: Mild disc desiccation and diffuse disc bulge with superimposed broad-based left paracentral p rotrusion. Moderate canal stenosis. No foraminal stenosis. C6-C7: Mild disc desiccation and diffuse disc bulge. Mild facet and uncovertebral hypertrophy. Mild canal stenosis. Mild bilateral foraminal stenosis. C7-T1: Normal in appearance. IMPRESSION: 1. Multilevel degenerative disc and facet disease, as well as uncovertebral hypertrophy. 2. Multilevel canal stenoses, worst at C5-C6 where there is moderate canal stenosis. 3. Mild multilevel foraminal stenoses. Reviewed by: Vicky Myers MD on 08/25/2022 4:48 PM PST Approved by: Vicky Myers MD on 08/25/2022 4:48 PM PST Station ID: [id number]
== END 2022-08-24 16:16 | disposition home or self-care (01) ==
LOC: DI 16:15
PROVIDERS: ATTEND Family Medicine
DX: M47.812 Spondylosis without myelopathy or radiculopathy, cervical region (principal); M50.321 Other cervical disc degeneration at C4-C5 level; M48.02 Spinal stenosis, cervical region

== ENCOUNTER 2024-01-24 07:02 | Outpatient (CLI) | payer OTHER ==
[2024-01-24] MEDS ORDERED: GADOTERATE MEGLUMINE 10 MMOL/20 ML VIAL ONE (07:07)
--- NOTE | 2024-01-24 10:14 | MRI Report ---
PROCEDURE: Pelvis W/WO INDICATIONS: PELVIC PAIN CONTRAST: 16.4ml Clariscan TECHNIQUE: Coronal ultra fast SE, sagittal breath-hold T2 FSE; axial T1 FSE with and without fat saturation thro ugh the pelvis. Optional long- and short-axis uterine nonbreath-hold T2 FSE through the uterus. Sag ittal or axial dynamic ultra fast GE during administration of contrast. Post-contrast axial or coron al ultra fast GE / 2-D spoiled GE with fat saturation from the iliac crests to the symphysis. Option al diffusion weighted imaging and ADC may be performed. COMPARISON: 04/16/2021 FINDINGS: Image quality: Excellent. Uterus: Partial hysterectomy, with remnants lower uterine segment. Ovaries are normal in size, with f ollicular appearance. Adnexa: Both ovaries are normal in size, without suspicious cystic or solid lesions. Urinary system: Bladder wall is normal in thickness. Distal ureters are non distended. Urethra sami ears normal in morphology. Nodes and vessels: No pelvic or inguinal adenopathy by size criteria. Iliac vessels are normal in s ize. Bowel and peritoneum: No pathologic free pelvic fluid. Inferior colon and small bowel loops are nor mal in caliber. Soft tissues: No inguinal hernias. No findings of pelvic floor incompetence in the absence of provo cation. Bones: Marrow demonstrates normal overall signal. IMPRESSION: Partial hysterectomy. Normal follicular appearance of the ovaries. No measurable endometriosis. Reviewed by: Wiliam Haney MD on 01/24/2024 10:13 AM PDT Approved by: Wiliam Haney MD on 01/24/2024 10:13 AM PDT Station ID: [id number]
[2024-01-24] MEDS: GADOTERATE MEGLUMINE 10 MMOL/20 ML VIAL IVP ONE (18:51)
== END 2024-01-24 07:03 | disposition home or self-care (01) ==
LOC: DI 07:02
PROVIDERS: ATTEND Family Medicine
DX: R10.9 Unspecified abdominal pain (principal); R10.2 Pelvic and perineal pain; R14.0 Abdominal distension (gaseous); Z90.710 Acquired absence of both cervix and uterus
CPT/HCPCS: 72197; A9575

== ENCOUNTER 2024-01-29 06:59 | Outpatient (CLI) | payer OTHER ==
[2024-01-29] MEDS ORDERED: GADOTERATE MEGLUMINE 10 MMOL/20 ML VIAL ONE (07:15)
--- NOTE | 2024-01-29 13:10 | MRI Report ---
PROCEDURE: Abdomen W/WO INDICATIONS: ABD PAIN History of endometriosis and gastric bypass CONTRAST: 16.4ml clariscan TECHNIQUE: Coronal ultra fast SE, axial 2D spoiled GE in- and [id number]; axial breath-hold T2 fast SE. Dynam ic axial ultra fast GE during the administration of contrast; post-contrast coronal ultra fast GE or 2D spoiled GE with fat saturation from the hepatic dome to the iliac crests. Optional diffusion weig hted imaging and ADC may be performed. COMPARISON: Pelvic MRI 01/24/2024 FINDINGS: Image quality: Diagnostic Lower chest: No basal effusions. Lung bases are unremarkable. Liver: Unremarkable. Gallbladder and biliary system: No biliary ductal dilation. Gallbladder is either absent or collapsed . Pancreas: No ductal dilation Spleen: Nonenlarged Adrenals: No discrete nodule Kidneys: No solid mass or hydronephrosis Vessels and lymph nodes: Main portal vein is patent. No abdominal aortic aneurysm. Bowel and peritoneum: No evidence of small bowel obstruction. No pathologic ascites. Postsurgical stacy nges of the stomach On precontrast T1-weighted imaging, there is no intrinsically T1 hyperintense focus of active endomet riosis deposit in the [id number]. No abdominal wall focal fibrotic signal in the [id number] Body wall: As above Pelvis: Better seen on recent MRI Bones: No acute or suspicious osseous finding. IMPRESSION: No acute abdominal pathology identified. No evidence of active endometriosis deposit within the field of view. If there are focal superficial body wall symptoms, a targeted ultrasound could also be purs ued. Reviewed by: Carlos Watkins MD on 01/29/2024 1:09 PM PDT Approved by: Carlos Watkins MD on 01/29/2024 1:09 PM PDT Station ID: [id number]
[2024-01-29] MEDS: GADOTERATE MEGLUMINE 10 MMOL/20 ML VIAL IVP ONE (18:01)
== END 2024-01-29 07:00 | disposition home or self-care (01) ==
LOC: DI 06:59
PROVIDERS: ATTEND Family Medicine
DX: R10.9 Unspecified abdominal pain (principal); G89.29 Other chronic pain; R14.0 Abdominal distension (gaseous)
CPT/HCPCS: 74183; A9575